=== PATIENT | male | born 1975 | race Hispanic/Latino ===

== ENCOUNTER 2018-07-13 22:10 | Emergency (ER) | payer OTHER ==
[2018-07-13 22:27] VITALS: BP 162/79; PULSE 118; RESP 22; TEMP 97.4; O2SAT 100
[2018-07-13] MEDS ORDERED: Sodium Chloride 0.9% 1,000 ML IV STA (23:49)
--- NOTE | 2018-07-13 23:52 | ED PDOC ---
HPI: General Adult Time Seen by Provider: 07/13/18 22:39 Chief Complaint (Nursing): Chest Pain Chief Complaint (Provider): Chest tightness History Per: Patient History/Exam Limitations: no limitations Additional Complaint(s): Pt states he took one hit of marijuana @ 9 PM today then felt chest tightness/pressure, SOB, feels like his muscles are tight. Denies fever, cough, vomiting. Past Medical History Reviewed: Nursing Documentation, Vital Signs Vital Signs: Last Vital Signs Temp 97.4 F L 07/13/18 22:25 Pulse 118 H 07/13/18 22:25 Resp 22 07/13/18 22:25 BP 162/79 H 07/13/18 22:25 Pulse Ox 100 07/13/18 22:25 - Medical History PMH: No Chronic Diseases - Family History Family History: States: Unknown Family Hx - Social History Current smoker - smoking cessation education provided: No Alcohol: None Drugs: Cannabis - Allergies Allergies/Adverse Reactions: Allergies Allergy/AdvReac Type Severity Reaction Status Date / Time No Known Allergies Allergy Verified 07/13/18 22:25 Review of Systems Constitutional: Negative for: Fever, Chills Cardiovascular: Positive for: Chest Pain. Negative for: Palpitations Respiratory: Positive for: Shortness of Breath. Negative for: Cough Gastrointestinal: Negative for: Abdominal Pain Neurological: Negative for: Weakness, Numbness, Headache, Dizziness Physical Exam - Reviewed Nursing Documentation Reviewed: Yes Vital Signs Reviewed: Yes - Physical Exam Appears: Positive for: Well, No Acute Distress (Speaking full sentences) Skin: Positive for: Normal Color, Warm, Dry Eye Exam: Positive for: Normal appearance, EOMI, PERRL Cardiovascular/Chest: Positive for: Tachycardia. Negative for: Irregularly Irregular Respiratory: Positive for: Normal Breath Sounds. Negative for: Rales, Rhonchi, Wheezing Gastrointestinal/Abdominal: Positive for: Normal Exam Back: Positive for: Normal Inspection Extremity: Positive for: Normal ROM Neurologic/Psych: Positive for: Alert, terrazzo grinder II-XII, Oriented. Negative for: Motor/Sensory Deficits - Laboratory Results Result Diagrams: 07/14/18 00:38 07/14/18 00:38 - ECG O2 Sat by Pulse Oximetry: 100 Medical Decision Making Medical Decision Makin yo male with chest tightness and dyspnea s/p marijuana use. - labs - EKG - CXR - IVF - Ativan Disposition - Clinical Impression Clinical Impression: Atypical chest pain - Disposition Disposition: Transfer of Care Disposition Time: 00:00 Condition: STABLE Additional Instructions: Increase water intake. Avoid alcohol and drugs. Follow up with primary medical doctor in 3 to 5 days. Return to the emergency department if you develop chest pain, trouble breathing, or other new symptoms. Instructions: Chest Pain (DC) Forms: [facility] (Bulgarian), [facility] School/Work Excuse Print Language: SWEDISH Patient Signed Over To: Ai Storey
--- NOTE | 2018-07-14 00:23 | ED PDOC ---
- Laboratory Results Result Diagrams: 07/14/18 00:38 07/14/18 00:38 - ECG O2 Sat by Pulse Oximetry: 100 (RA) Pulse Ox Interpretation: Normal Medical Decision Making Medical Decision Making: Time: 0000 --Patient signed out to this provider by Dr. Dean, pending labs, Chest x-ray, and resolution of tachycardia. Patient will most likely be discharged home. Time: 0223 --Patient reports feeling better, vitals WNL, patient will be discharged home, to follow up with PMD in 3-5 days. Patient declining referral. Scribe Attestation: Documented by Juana Perez, acting as a scribe for Ai Storey MD. Provider Scribe Attestation: All medical record entries made by the Scribe were at my direction and personally dictated by me. I have reviewed the chart and agree that the record accurately reflects my personal performance of the history, physical exam, medical decision making, and the department course for this patient. I have also personally directed, reviewed, and agree with the discharge instructions and disposition. Disposition - Clinical Impression Clinical Impression: Atypical chest pain - POA Present On Arrival: None - Disposition Disposition: Routine/Home Disposition Time: 02:15 Condition: IMPROVED Additional Instructions: Increase water intake. Avoid alcohol and drugs. Follow up with primary medical doctor in 3 to 5 days. Return to the emergency department if you develop chest pain, trouble breathing, or other new symptoms. Instructions: Chest Pain (DC) Forms: [facility] (Serbian), [facility] School/Work Excuse Print Language: TAMAZIGHT
[2018-07-14 00:47] LABS: BASO # 0.1 K/uL (0.0-0.2); BASO % 1.1 % (0.0-2.0); EOS % 0.3 % (0.0-4.0); HEMOGLOBIN 13.2 g/dL (12.0-18.0); LYMPH # 1.3 K/uL (1.0-4.3); LYMPH % 12.3 % (20.0-40.0); MEAN CELL VOLUME 87.1 fl (80.0-94.0); MEAN CORPUSCULAR HGB CONC 34.5 g/dL (33.0-37.0); MEAN PLATELET VOLUME 10.2 fl (7.2-11.7); MONO # 0.5 K/uL (0.0-0.8); MONO % 4.4 % (0.0-10.0); NEUT # 8.9 K/uL (1.8-7.0); NEUT % 81.9 % (50.0-75.0); RBC 4.39 Mil/uL (4.40-5.90); RED CELL DISTRIBUTION WIDTH 12.8 % (11.5-14.5); WHITE BLOOD COUNT 10.9 K/uL (4.8-10.8)
[2018-07-14 00:54] LABS: INR 0.9; PROTHROMBIN TIME 10.4 Seconds (9.8-13.1)
[2018-07-14 00:56] LABS: ALB/GLOB RATIO 1.2 (1.0-2.1); ALBUMIN 4.1 g/dL (3.5-5.0); ALT/SGPT 31 U/L (21-72); AST/SGOT 32 U/L (17-59); BLOOD UREA NITROGEN 15 mg/dl (9-20); CALCIUM 9.2 mg/dL (8.4-10.2); GFR NON-AFRICAN AMERICAN > 60
[2018-07-14 00:57] LABS: PARTIAL THROMBOPLASTIN TIME 30.7 Seconds (25.6-37.1)
[2018-07-14 01:11] LABS: BARBITURATES, UR NEGATIVE (NEGATIVE); BENZODIAZEPINES, UR NEGATIVE (NEGATIVE); OPIATES, UR NEGATIVE (NEGATIVE); PHENCYCLIDINE, UR NEGATIVE (NEGATIVE)
--- NOTE | 2018-07-14 08:19 | RAD ---
Date of service: 07/13/2018 HISTORY: SOB COMPARISON: No prior. TECHNIQUE: Chest PA and lateral FINDINGS: LUNGS: No active pulmonary disease. PLEURA: No significant pleural effusion identified. No pneumothorax apparent. CARDIOVASCULAR: No aortic atherosclerotic calcification present. Normal cardiac size. No pulmonary vascular congestion. OSSEOUS STRUCTURES: No significant abnormalities. VISUALIZED UPPER ABDOMEN: Normal. OTHER FINDINGS: None. IMPRESSION: No acute cardiopulmonary disease appreciated.
--- NOTE | 2018-07-17 12:11 | CARD ---
APPROVED REPORT Date of service: 07/13/2018 EKG Measurement Heart [id number] <Conclusion> Sinus tachycardia Otherwise normal ECG
== END 2018-07-14 02:30 | disposition home or self-care (01) ==
LOC: H.ER 22:10
DX: R07.89 Other chest pain (principal)